=== PATIENT | male | born 1985 | race Hispanic/Latino ===

== ENCOUNTER 2018-01-02 08:40 | Emergency (ER) | payer OTHER ==
[~2018-01-02] VITALS: Ht 182.9 cm; Wt 73.6 kg
[~2018-01-02 08:40] MED LIST: BACTRIM,SEPT1 TABLET PO; COLACE100 MG PO; KEFLEX500 MG PO; MUCINEX D ER T1 EAC1 PO; MULTIVITAMINS1 EA11 PO; NAPROSYN500 MG PO; NORCO 5/3251 TABLET PO; PREPARATION H1 EAC4 PR; PROCTOFOAM15 GM TP; TESSALON PERLE100 MG PO; TRAZODONE HCL50 MG PO; ULTRAM50 MG PO
[2018-01-02] MEDS ORDERED: CIPRO250 MG PO (09:45)
[2018-01-02 10:13] VITALS: BP 109/62
== END 2018-01-02 10:16 | disposition home or self-care (01) ==
LOC: EME 08:40
DX: L73.9 Follicular disorder, unspecified (principal)
CPT/HCPCS: 99281; 99283

== ENCOUNTER 2018-01-03 07:01 | Emergency (ER) | payer OTHER ==
[~2018-01-03] VITALS: Ht 180.3 cm; Wt 73.3 kg
[~2018-01-03 07:01] MED LIST changes: +CIPRO250 MG PO
[2018-01-03 07:03] VITALS: BP 113/77
== END 2018-01-03 08:21 | disposition left against medical advice (07) ==
LOC: EME 07:01
DX: S40.811A Abrasion of right upper arm, initial encounter (principal); S40.812A Abrasion of left upper arm, initial encounter; S80.811A Abrasion, right lower leg, initial encounter; S80.812A Abrasion, left lower leg, initial encounter; X58.XXXA Exposure to other specified factors, initial encounter; F17.200 Nicotine dependence, unspecified, uncomplicated
CPT/HCPCS: 99281; 99283

== ENCOUNTER 2018-01-19 17:55 | Emergency (ER) | payer OTHER ==
[2018-01-20] MEDS ORDERED: HIBICLENS118 ML TP (00:42)
[2018-01-20] MEDS ORDERED: BACTROBAN NASAL1 G1 BOTH NARES (00:42)
[2018-01-20] MEDS ORDERED: BACTRIM,SEPT1 TABLET PO (00:42)
== END 2018-01-19 19:27 | disposition left against medical advice (07) ==
LOC: EME 17:55
DX: L08.9 Local infection of the skin and subcutaneous tissue, unspecified (principal); Z53.21 Procedure and treatment not carried out due to patient leaving prior to being seen by health care provider

== ENCOUNTER 2018-01-19 22:31 | Emergency (ER) | payer OTHER ==
[~2018-01-19] VITALS: Ht 180.3 cm; Wt 76.1 kg
[2018-01-20] MEDS ORDERED: HIBICLENS118 ML TP (00:42)
[2018-01-20] MEDS ORDERED: BACTRIM,SEPT1 TABLET PO (00:42)
[2018-01-20] MEDS ORDERED: BACTROBAN NASAL1 G1 BOTH NARES (00:42)
[2018-01-20 01:34] VITALS: BP 115/78
== END 2018-01-20 01:35 | disposition home or self-care (01) ==
LOC: EME 22:31
PROC: 0H9JXZZ Drainage of Left Upper Leg Skin, External Approach (ICD-10-PCS; principal; 2018-01-19)
DX: L02.416 Cutaneous abscess of left lower limb (principal); L03.116 Cellulitis of left lower limb; Z86.14 Personal history of Methicillin resistant Staphylococcus aureus infection; F17.200 Nicotine dependence, unspecified, uncomplicated
CPT/HCPCS: 87070; 87075; 87077; 87147; 87186; 87205; 99281; 99283